=== PATIENT | male | born 1985 | race Caucasian/White ===

== ENCOUNTER → 2021-11-01 | Outpatient (CLI) | payer BC ==
--- NOTE | 2021-11-01 10:46 | Diagnostic Imaging Report ---
PROCEDURE: MRI left joint lower extremity without contrast, 11/01/2021. TECHNIQUE: Multiplanar, multisequence non contrast-enhanced MRI of the left lower extremity was accomplished. INDICATION: Lump along the patellar region. Marker placed at site of concern. Symptoms for approximately one month. FINDINGS: There is a of focal T2 hyperintense collection anterior to the mid and inferior border of the patella. This is subcutaneous in location and measures 3.6 x 1.5 x 3.1 cm in size. Internal septations noted. There are adjacent and likely continuous cystic areas extending cranially along the lateral border of the prepatellar soft tissues. Diffuse surrounding soft tissue edema is noted. The underlying patellar tendon is intact. The patella itself is unremarkable for acute abnormality. This lesion is diffusely hyperintense on T2-weighted imaging and hypointense on the T1-weighted images. It most likely represents a process such as a prepatellar bursitis. A hematoma is another possibility. Other cystic masses less likely but clinical follow-up is recommended to assure resolution. If this does not resolve, postcontrast imaging recommended. The distal quadriceps tendon intact. The ACL and PCL intact. The MCL and the lateral collateral ligamentous complex intact. The medial meniscus appears intact. The lateral meniscus is intact. Cartilage in the medial and lateral joint compartments appears maintained. There is minimal thinning of the cartilage overlying the patella. There is a small underlying joint effusion. There is no acute osseous abnormality. IMPRESSION: 1. Subcutaneous cystic-appearing collection in the prepatellar soft tissues with surrounding edema. Findings could be due to a prepatellar bursitis with a hematoma not excluded. If this does not resolve, follow-up imaging with contrast recommended for further characterization. 2. Ligaments and tendons intact. 3. Menisci intact. 4. Minimal patellofemoral degenerative findings. Dictated by: Dictated on workstation # [id number]
== END ==
LOC: RAD 08:55
PROVIDERS: ATTEND Physician Assistant
DX: M70.52 Other bursitis of knee, left knee (principal); S80.02XA Contusion of left knee, initial encounter
CPT/HCPCS: 73721